=== PATIENT | male | born 1975 | race Caucasian/White ===

== ENCOUNTER 2017-09-28 20:14 | Emergency (ER) | payer SELFPAY ==
[2017-09-28 20:32] VITALS: TEMP 98.5
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
[2017-09-28 22:15] VITALS: BP 122/90; PULSE 85; RESP 18
[2017-09-29 00:19] VITALS: O2SAT 98
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
== END 2017-09-28 22:18 | disposition home or self-care (01) ==
LOC: C.ER 20:14
DX: S06.0X0A Concussion without loss of consciousness, initial encounter (principal); Y04.0XXA Assault by unarmed brawl or fight, initial encounter; R51 Headache

== ENCOUNTER 2018-03-25 22:06 | Emergency (ER) | payer SELFPAY ==
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
[2018-03-25] MEDS ORDERED: Tdap Vaccine 0.5 ml Vial (10-64 yrs) IM ONE (22:40)
[2018-03-25 23:28] LABS: BASO # 0.1 K/uL (0.0-0.2); BASO % 0.9 % (0.0-2.0); EOS # 0.1 K/uL (0.0-0.7); EOS % 1.9 % (0.0-4.0); HEMOGLOBIN 17.4 g/dL (12.0-18.0); LYMPH # 2.2 K/uL (1.0-4.3); LYMPH % 28.6 % (20.0-40.0); MEAN CELL VOLUME 87.4 fL (80.0-94.0); MEAN CORPUSCULAR HEMOGLOBIN 29.3 pg (27.0-31.0); MEAN CORPUSCULAR HGB CONC 33.6 g/dL (33.0-37.0); MEAN PLATELET VOLUME 8.7 fL (7.2-11.7); MONO # 0.4 K/uL (0.0-0.8); MONO % 5.4 % (0.0-10.0); NEUT # 4.8 K/uL (1.8-7.0); NEUT % 63.2 % (50.0-75.0); NRBC % 0.1 % (0.0-2.0); RBC 5.93 Mil/uL (4.40-5.90); RED CELL DISTRIBUTION WIDTH 14.8 % (11.5-14.5); WHITE BLOOD COUNT 7.5 K/uL (4.8-10.8)
[2018-03-25 23:40] LABS: ALB/GLOB RATIO 1.8 (1.0-2.1); ALBUMIN 4.5 g/dL (3.5-5.0); ALT/SGPT 42 U/L (21-72); AST/SGOT 27 U/L (17-59); BLOOD UREA NITROGEN 7 mg/dL (9-20); CALCIUM 8.2 mg/dl (8.6-10.4); GFR NON-AFRICAN AMERICAN > 60
[2018-03-25 23:51] LABS: PROTHROMBIN TIME 10.7 SECONDS (9.7-12.2)
[2018-03-26] MEDS ORDERED: Tdap Vaccine 0.5 ml Vial (10-64 yrs) IM ONE (00:21)
[2018-03-26 06:21] VITALS: BP 154/78; PULSE 74; RESP 17; TEMP 98.6; O2SAT 98
--- NOTE | 2018-03-26 07:47 | CT ---
Date of service: 03/26/2018 PROCEDURE: CT HEAD WITHOUT CONTRAST. HISTORY: fall COMPARISON: 09/28/2017 TECHNIQUE: Axial computed tomography images were obtained through the head/brain without intravenous contrast. Radiation dose: Total exam DLP = 1262.09 mGy-cm. This CT exam was performed using one or more of the following dose reduction techniques: Automated exposure control, adjustment of the mA and/or kV according to patient size, and/or use of iterative reconstruction technique. FINDINGS: HEMORRHAGE: No intracranial hemorrhage. BRAIN: No mass effect or edema. No atrophy or chronic microvascular ischemic changes. VENTRICLES: Unremarkable. No hydrocephalus. CALVARIUM: Motion artifact limits evaluation for fracture deformity. Nasal bone deformities. PARANASAL SINUSES: Unremarkable as visualized. No significant inflammatory changes. MASTOID AIR CELLS: Unremarkable as visualized. No inflammatory changes. OTHER FINDINGS: Soft tissue swelling overlying the posterior midline to left-sided occipital cranium. Additional soft tissue swelling overlying the frontal cranium. Intracranial arterial calcifications. IMPRESSION: No acute intracranial abnormality. Nasal bone fractures. Soft tissue swelling overlying the posterior midline to left-sided occipital cranium. Additional soft tissue swelling overlying the frontal cranium. If symptoms persists, consider correlation with MRI. A preliminary report was generated at 1:44 a.m. on 03/26/[address] Yana Posey from [facility].
--- NOTE | 2018-03-26 10:49 | CT ---
CT cervical spine HISTORY: Fall. COMPARISON: None available. Technique: Multiple contiguous axial images were performed through the cervical spine without the use of intravenous contrast. Subsequently, sagittal and coronal reformatted images were obtained. This CT exam was performed using one or more of the following dose reduction techniques: Automated exposure control, adjustment of the mA and/or kV according to patient size, and/or use of iterative reconstruction technique. Findings: Limited study as the patient's head is rotated and in suboptimal technical positioning. Narrowing at the atlantodental interval with sclerosis. Mild loss of height of the inferior endplate of the C5 vertebral body. Anterior osteophytosis at the C4-5 and C5-6 levels. Incidentally noted is anterior osteophytosis at the T2 through T4 levels. Posterior disc osteophyte complex at the C4-5 level. Probable small posterior disc bulges throughout the cervical spine which may be better evaluated with MRI. Productive and or new bone formation seen posterior to the posterior spinous processes at the C5 and C6 levels as well as the T2 through T4 levels. No gross prevertebral soft tissue swelling. Multilevel uncovertebral joint and facet hypertrophy most prominent at the C7-T1 levels. Prominent Schmorl's node formation at the superior endplate of the C6 vertebral body. Mild mucosal thickening of the right maxillary sinus. Heterogeneity of the thyroid. Impression: Degenerative changes. If pain persists, consider correlation with MRI. A preliminary report was generated at 01:45 a.m. on 03/26/[address] Yana Posey from [employer].
== END 2018-03-26 06:20 | disposition home or self-care (01) ==
LOC: C.ER 22:06
DX: F10.129 Alcohol abuse with intoxication, unspecified (principal); Y90.8 Blood alcohol level of 240 mg/100 ml or more; S00.81XA Abrasion of other part of head, initial encounter; X58.XXXA Exposure to other specified factors, initial encounter
CPT/HCPCS: 70450; 72125; 80053; 82948; 85025; 85610; 85730; 90471; 90715; 96372; 99285; G0480; J1630